=== PATIENT | male | born 2000 | race Caucasian/White ===

== ENCOUNTER 2022-06-17 00:31 | Emergency (ER) | payer OTHER ==
[2022-06-17 01:41] LABS: HEMOGLOBIN 14.5 gm/dl (14.0-17.5); WHITE BLOOD COUNT 10.1 K/UL (4.5-11.0)
[2022-06-17 02:25] LABS: BUN/CREATININE RATIO 25 (0-10)
== END 2022-06-17 03:43 | disposition home or self-care (01) ==
LOC: ER1 00:31
PROVIDERS: Physician Assistant
DX: R10.9 Unspecified abdominal pain (principal); R06.02 Shortness of breath; R10.817 Generalized abdominal tenderness
CPT/HCPCS: 71045; 80053; 81001; 82550; 82553; 84484; 85025; 93005; 99285; Q9967